=== PATIENT | female | born 1985 | race African-American/Black ===

== ENCOUNTER 2017-11-22 04:10 | Emergency (ER) | payer SELFPAY ==
[~2017-11-22] VITALS: Ht 170.2 cm; Wt 71.0 kg
[2017-11-22] MEDS ORDERED: HYDROCODONE/ACETAMINOPHEN 5/325MG TABLET PO ONE (05:45)
[2017-11-22 06:54] VITALS: BP 116/80
== END 2017-11-22 08:05 | disposition home or self-care (01) ==
LOC: ER 04:10
DX: S63.619A Unspecified sprain of unspecified finger, initial encounter (principal); Y04.0XXA Assault by unarmed brawl or fight, initial encounter; Y93.89 Activity, other specified; Y92.89 Other specified places as the place of occurrence of the external cause
CPT/HCPCS: 73130; 81025; 99284